=== PATIENT | female | born 1970 | race Hispanic/Latino ===

== ENCOUNTER 2017-07-07 08:17 | Emergency (ER) | payer SELFPAY ==
[2017-07-07] MEDS ORDERED: Ondansetron HCl/PF 4 MG/2 ML Vial ONE (08:44)
[2017-07-07] MEDS ORDERED: Pantoprazole 40 MG VIAL ONE (08:45)
[2017-07-07] MEDS ORDERED: Mag-Al 1200 mg/1200 mg/30 ML UDCUP ONE (08:45)
[2017-07-07] MEDS ORDERED: Lidocaine Viscous Sol 2% 15 ml UD Cup ONE (08:45)
[2017-07-07 09:05] LABS: #Eosinphils 0.3 thou/uL (0.0-0.7); #Lymphocytes 1.7 thou/uL (1.20-3.40); #Monocytes 0.6 thou/uL (0.11-0.59); #Neutrophils 4.1 thou/uL (1.40-6.50); %Basophils 0.4 % (0.0-1.0); %Eosinophils 4.7 % (0.0-10.0); %Lymphocytes 25.3 % (21.0-51.0); %Monocytes 9.1 % (0.0-10.0); %Neutrophils 60.6 % (42.0-75.0); Hemoglobin 10.8 g/dL (12.0-16.0); Mean Corpuscular HGB CONC 33.4 g/dL (32.0-36.0); Mean Corpuscular Hemoglobin 27.3 pg (27.0-31.0); Mean Corpuscular Volume 81.6 fl (81.0-99.0); Mean Platelet Volume 8.3 fL (7.4-10.4); Platelet Count 185 thou/uL (130-400); RBC Distribution Width 14.6 % (11.5-14.5); Red Blood Cell (RBC) Count 3.94 mill/uL (4.20-5.40); White Blood Cell (WBC) Count 6.8 thou/uL (4.8-10.8)
[2017-07-07 09:31] LABS: ALT (SGPT) 13 U/L (8-55); AST (SGOT) 16 U/L (5-34); Albumin 3.7 g/dL (3.5-5.0); Alkaline Phosphatase 81 U/L (40-150); Anion Gap 8 mmol/L (10-20); BUN (Urea Nitrogen) 20 mg/dL (7.0-18.7); Bilirubin, Total 0.3 mg/dL (0.2-1.2); Calc. Creatinine Clearance 0 mL/min (70-130); Calcium 8.9 mg/dL (7.8-10.44); Carbon Dioxide 25 mmol/L (22-29); Chloride 107 mmol/L (98-107); Estimated GFR-MDRD 77; Glucose 121 mg/dL (70-105); Lipase 40 U/L (8-78); Protein, Total 6.7 g/dL (6.0-8.3); Sodium 136 mmol/L (136-145)
== END 2017-07-07 11:15 | disposition home or self-care (01) ==
LOC: ERS 08:17
DX: K21.9 Gastro-esophageal reflux disease without esophagitis (principal); E11.9 Type 2 diabetes mellitus without complications; E78.00 Pure hypercholesterolemia, unspecified
CPT/HCPCS: 36415; 80053; 83690; 85025; 96361; 96374; 96375; C9113; J2405